=== PATIENT | male | born 1955 | race Caucasian/White ===

== ENCOUNTER 2018-05-03 01:18 | Emergency (ER) | payer SELFPAY ==
[~2018-05-03] VITALS: Ht 170.2 cm; Wt 137.0 kg
[2018-05-03] MEDS ORDERED: ACETAMINOPHEN 325MG TABLET PO ONE (02:15)
[2018-05-03] MEDS ORDERED: ACETAMINOPHEN 650MG/20.3ML UDC PO ONE (18:30)
[2018-05-04] MEDS ORDERED: IBUPROFEN 600MG TABLET PO ONE (21:15)
[2018-05-05] MEDS ORDERED: TRAMADOL 50MG TABLET PO ONE (20:30)
[2018-05-06 09:00] VITALS: BP 131/78
== END 2018-05-06 09:15 | disposition home or self-care (01) ==
LOC: ER 01:36
DX: S59.811A Other specified injuries right forearm, initial encounter (principal); S59.812A Other specified injuries left forearm, initial encounter; E11.9 Type 2 diabetes mellitus without complications; W05.0XXA Fall from non-moving wheelchair, initial encounter; Y93.89 Activity, other specified; Y92.89 Other specified places as the place of occurrence of the external cause; Z75.1 Person awaiting admission to adequate facility elsewhere; Z68.42 Body mass index [BMI] 45.0-49.9, adult; E66.9 Obesity, unspecified; Z99.3 Dependence on wheelchair; Z59.0 Homelessness; Z98.1 Arthrodesis status; Z88.9 Allergy status to unspecified drugs, medicaments and biological substances; Z89.519 Acquired absence of unspecified leg below knee
CPT/HCPCS: 73090; 99284; Z7610